=== PATIENT | male | born 2000 | race African-American/Black ===

== ENCOUNTER 2022-07-08 14:48 | Emergency (ER) | payer OTHER ==
[~2022-07-08] VITALS: Ht 190.5 cm; Wt 86.0 kg
[2022-07-08 14:52] VITALS: BP 138/88
[2022-07-08] MEDS ORDERED: CYCL-1 PO (17:06)
[2022-07-08] MEDS ORDERED: IBUP-1984 PO (17:06)
[2022-07-09] MEDS ORDERED: CYCL-1 PO (11:05)
[2022-07-09] MEDS ORDERED: IBUP-1984 PO (11:05)
== END 2022-07-08 17:17 | disposition home or self-care (01) ==
LOC: ER 14:49
DX: S16.1XXA Strain of muscle, fascia and tendon at neck level, initial encounter (principal); X58.XXXA Exposure to other specified factors, initial encounter; Y93.89 Activity, other specified; Y92.89 Other specified places as the place of occurrence of the external cause; Y99.8 Other external cause status
CPT/HCPCS: 72125; 99284